=== PATIENT | male | born 1985 | race Caucasian/White ===

== ENCOUNTER 2016-06-20 15:24 | Emergency (ER) | payer OTHER ==
[2016-06-20] MEDS ORDERED: Lidocaine 1% 20 ML MDV ONE (15:42)
[2016-06-20] MEDS ORDERED: Ibuprofen 800 MG TAB ONE (16:13)
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
== END 2016-06-20 16:26 | disposition home or self-care (01) ==
LOC: NAV ERS 15:24
DX: S01.511A Laceration without foreign body of lip, initial encounter (principal); Z87.891 Personal history of nicotine dependence; Y04.2XXA Assault by strike against or bumped into by another person, initial encounter
CPT/HCPCS: 12011; J2001